=== PATIENT | male | born 1990 | race Two or more races ===

== ENCOUNTER 2017-07-25 14:18 | Emergency (ER) | payer MEDICAID ==
[~2017-07-25] VITALS: Ht 172.7 cm; Wt 95.8 kg
[2017-07-25] MEDS ORDERED: IBUPROFEN 800 MG TABLET PO SCH (15:30)
[2017-07-25] MEDS ORDERED: LIDOCAINE-MPF 1%, 5ML INFIL ONE (15:30)
[2017-07-25] MEDS ORDERED: IBUPROFEN 800 MG TABLET PO ONE (15:30)
[2017-07-25 16:58] VITALS: BP 119/86
== END 2017-07-25 17:25 | disposition home or self-care (01) ==
LOC: ED 16:55
DX: S71.121A Laceration with foreign body, right thigh, initial encounter (principal); F33.9 Major depressive disorder, recurrent, unspecified; X78.8XXA Intentional self-harm by other sharp object, initial encounter; Y93.89 Activity, other specified; Y92.89 Other specified places as the place of occurrence of the external cause; Y99.8 Other external cause status
CPT/HCPCS: 12032; 99284

== ENCOUNTER 2017-10-17 23:00 | Emergency (ER) | payer MEDICAID ==
[~2017-10-17] VITALS: Ht 172.7 cm; Wt 100.3 kg
[2017-10-17] MEDS ORDERED: ZOLOFT (23:07)
[2017-10-17] MEDS ORDERED: SEROQUEL (23:07)
[2017-10-17] MEDS ORDERED: synthroid (23:07)
[2017-10-18] MEDS ORDERED: ONDANSETRON ODT 4 MG PO ONE (01:00)
[2017-10-18] MEDS ORDERED: IBUPROFEN 200 MG TABLET PO ONE (01:00)
[2017-10-18] MEDS ORDERED: LIDOCAINE-MPF 2% ,5ML SQ ONE (01:00)
[2017-10-18 01:11] VITALS: BP 109/60
[2017-10-18] MEDS ORDERED: LIDOCAINE-MPF 2% ,5ML ONE ×2 (01:18→01:46)
[2017-10-18] MEDS ORDERED: IBUPROFEN 200 MG TABLET ONE (01:18)
[2017-10-18] MEDS ORDERED: ONDANSETRON ODT 4 MG ONE (01:18)
== END 2017-10-18 02:48 | disposition home or self-care (01) ==
LOC: ED 23:59
DX: L02.416 Cutaneous abscess of left lower limb (principal); M79.671 Pain in right foot; E11.9 Type 2 diabetes mellitus without complications; E03.9 Hypothyroidism, unspecified; J45.909 Unspecified asthma, uncomplicated; F17.200 Nicotine dependence, unspecified, uncomplicated
CPT/HCPCS: 10060; 73630; 76882; 99284; Q0162

== ENCOUNTER 2017-11-19 15:02 | Inpatient (IN) | payer MEDICAID ==
[~2017-11-19] VITALS: Ht 172.7 cm; Wt 86.5 kg
[~2017-11-19 15:02] MED LIST: SEROQUEL; ZOLOFT; synthroid
[2017-11-19] MEDS ORDERED: KETOROLAC 30 MG/1 ML IM ONE (15:30)
[2017-11-19 15:34] LABS: BASOPHILS # (AUTO) 0.02 x10^3/uL (0-0.1); BASOPHILS % (AUTO) 0 % (0-1); EOSINOPHILS % (AUTO) 1 % (1-7); LYMPHOCYTES # (AUTO) 2.15 x10^3/uL (1-3.4); LYMPHOCYTES % (AUTO) 26 % (22-44); MD NO; MEAN CORPUSCULAR HEMOGLOBIN 24.4 pg (27.5-34.5); MEAN CORPUSCULAR HGB CONC 32.7 g/dL (33.2-36.2); MEAN CORPUSCULAR VOLUME 74.7 fL (81-97); MEAN PLATELET VOLUME 8.8 fL (7.4-10.4); MONOCYTES # (AUTO) 0.58 x10^3/uL (0.2-0.8); MONOCYTES % (AUTO) 7 % (2-9); NEUTROPHILS % (AUTO) 66 % (42-75); PLATELET COUNT 275 x10^3/uL (130-400); RED BLOOD COUNT 5.71 x10^6/uL (4.38-5.82); RED CELL DISTRIBUTION WIDTH 16.3 % (9.4-14.8)
[2017-11-19] MEDS ORDERED: KETOROLAC 30 MG/1 ML ONE (15:36)
[2017-11-19 15:42] LABS: ALANINE AMINOTRANSFERASE 25 U/L (12-78); ALBUMIN 4.4 g/dL (3.4-5.0); ANION GAP 9 mmol/L (5-15); CALCIUM 9.5 mg/dL (8.5-10.1); CHLORIDE 104 mmol/L (98-107); CREATININE 1.19 mg/dL (0.7-1.3)
[2017-11-19 15:44] LABS: ACETAMINOPHEN < 2 mcg/mL (10-30); ALKALINE PHOSPHATASE 91 U/L (45-117); BILIRUBIN,TOTAL 0.2 mg/dL (0.2-1.0); SALICYLATE LEVEL < 1.7 mg/dL (2.8-20.0); TOTAL PROTEIN 8.7 g/dL (6.4-8.2)
[2017-11-19 16:07] LABS: AMPHETAMINE SCREEN, URINE Negative (Negative); BARBITURATE SCREEN, URINE Negative (Negative); BENZODIAZEPINE SCREEN, URINE Positive (Negative); CANNABINOID SCREEN, URINE Negative (Negative); COCAINE SCREEN, URINE Negative (Negative); METHADONE SCREEN, URINE Negative (Negative); OPIATE SCREEN, URINE Negative (Negative)
[2017-11-19] MEDS ORDERED: THORAZINE PO (17:38)
[2017-11-19] MEDS ORDERED: PROP20TA PO (17:38)
[2017-11-19] MEDS ORDERED: LEVO75TA PO (17:38)
[2017-11-19] MEDS ORDERED: GABA300C10 PO (17:38)
[2017-11-19] MEDS ORDERED: ZIPR60CA2 PO (17:38)
[2017-11-19] MEDS ORDERED: BACL20TA PO (17:39)
[2017-11-19] MEDS ORDERED: ZIPRASIDONE 20 MG INJ IM PRN (19:00)
[2017-11-19 19:56] VITALS: BP 135/81
[2017-11-19] MEDS ORDERED: GABAPENTIN 300 MG CAPSULE PO SCH (21:00)
[2017-11-19] MEDS: PROPRANOLOL 20 MG TABLET PO SCH (22:31)
[2017-11-19] MEDS: DOXYCYCLINE 100MG TABLET PO SCH (22:31)
[2017-11-19] MEDS: BACLOFEN 10 MG TABLET PO SCH (22:31)
[2017-11-19] MEDS ORDERED: ZIPRASIDONE 20MG CAPSULE PO ONE (23:30)
[2017-11-19] MEDS ORDERED: GABAPENTIN 300 MG CAPSULE PO ONE (23:30)
[2017-11-19] MEDS: DIVALPROEX 500 MG TAB.ER.24H PO SCH (23:48)
[2017-11-20] MEDS: LEVOTHYROXINE 75 MCG TABLET PO SCH (07:28)
[2017-11-20 07:48] VITALS: BP 108/68
[2017-11-20] MEDS: DOXYCYCLINE 100MG TABLET PO SCH ×2 (09:07→20:21)
[2017-11-20] MEDS: ZIPRASIDONE 40MG CAPSULE PO SCH ×2 (09:07→20:21)
[2017-11-20] MEDS: GABAPENTIN 300 MG CAPSULE PO SCH ×3 (09:07→20:21)
[2017-11-20] MEDS: SERTRALINE 50MG TABLET PO SCH (09:08)
[2017-11-20] MEDS: BACLOFEN 10 MG TABLET PO SCH ×3 (09:08→20:21)
[2017-11-20] MEDS: PROPRANOLOL 20 MG TABLET PO SCH ×3 (09:09→20:22)
[2017-11-20] MEDS: ACETAMINOPHEN 325 MG TABLET PO PRN (12:36)
[2017-11-20] MEDS: HYDROXYZINE PAMOATE 25MG CAP PO PRN (12:36)
[2017-11-20 15:23] VITALS: BP 124/73
[2017-11-20 19:44] VITALS: BP 110/70
[2017-11-20] MEDS: DIVALPROEX 500 MG TAB.ER.24H PO SCH (20:21)
[2017-11-20] MEDS ORDERED: DIVALPROEX 500 MG TAB.ER.24H PO SCH (21:00)
[2017-11-21 07:51] VITALS: BP 110/65
[2017-11-21] MEDS: LEVOTHYROXINE 75 MCG TABLET PO SCH (08:08)
[2017-11-21] MEDS: PROPRANOLOL 20 MG TABLET PO SCH ×3 (08:52→20:28)
[2017-11-21] MEDS: ZIPRASIDONE 40MG CAPSULE PO SCH ×2 (08:52→20:28)
[2017-11-21] MEDS: DOXYCYCLINE 100MG TABLET PO SCH ×2 (08:53→20:28)
[2017-11-21] MEDS: GABAPENTIN 300 MG CAPSULE PO SCH ×3 (08:53→20:28)
[2017-11-21] MEDS: BACLOFEN 10 MG TABLET PO SCH ×3 (08:53→20:28)
[2017-11-21] MEDS: SERTRALINE 50MG TABLET PO SCH (09:02)
[2017-11-21] MEDS: ACETAMINOPHEN 325 MG TABLET PO PRN (09:14)
[2017-11-21] MEDS: HYDROXYZINE PAMOATE 25MG CAP PO PRN ×2 (09:14→15:53)
[2017-11-21 20:00] VITALS: BP 125/84
[2017-11-21] MEDS: DIVALPROEX 500 MG TAB.ER.24H PO SCH (20:29)
[2017-11-21 21:55] VITALS: BP 129/85
[2017-11-21] MEDS: AMOXICILLIN/CLAV 875-125MG TABLET PO SCH (23:52)
[2017-11-22] MEDS: LEVOTHYROXINE 75 MCG TABLET PO SCH ×2 (06:00→08:00)
[2017-11-22] MEDS: ZIPRASIDONE 40MG CAPSULE PO SCH ×2 (08:04→20:58)
[2017-11-22] MEDS: SERTRALINE 50MG TABLET PO SCH (08:04)
[2017-11-22] MEDS: GABAPENTIN 300 MG CAPSULE PO SCH ×3 (08:05→20:58)
[2017-11-22] MEDS: BACLOFEN 10 MG TABLET PO SCH ×3 (08:05→20:58)
[2017-11-22] MEDS: DOXYCYCLINE 100MG TABLET PO SCH (08:05)
[2017-11-22] MEDS: PROPRANOLOL 20 MG TABLET PO SCH ×3 (08:11→20:58)
[2017-11-22 08:57] VITALS: BP 112/76
[2017-11-22] MEDS ORDERED: MIDAZOLAM 1 MG/ML, 2ML ONE (09:29)
[2017-11-22] MEDS ORDERED: FENTANYL PF 100 MCG/2ML ONE (09:29)
[2017-11-22] MEDS ORDERED: PROPOFOL 50 ML ONE (09:30)
[2017-11-22] MEDS ORDERED: KETAMINE 50 MG/ML, 10ML ONE (10:35)
[2017-11-22] MEDS ORDERED: BUPIVACAINE/PF-EPI 0.5% 1:200K ONE (10:43)
[2017-11-22] MEDS ORDERED: BUPIVACAINE/PF-EPI 0.5% 1:200K IM ONE (10:47)
[2017-11-22] MEDS ORDERED: ACETAMINOPHEN 650 MG/20.3 ML UDC ONE (11:14)
[2017-11-22] MEDS ORDERED: OXYcodone 5 MG/5 ML ORAL.SOL UDC ONE (11:14)
[2017-11-22] MEDS ORDERED: ONDANSETRON ODT 8 MG PO PRN (11:30)
[2017-11-22] MEDS ORDERED: HYDROcodone/APAP 7.5-325MG/15ML UDC PO PRN (11:30)
[2017-11-22] MEDS ORDERED: OXYcodone 5 MG/5 ML ORAL.SOL UDC PO PRN ×2 (11:30)
[2017-11-22] MEDS ORDERED: ALBUTEROL SULFATE 2.5 MG/3 ML NPPB PRN (11:30)
[2017-11-22] MEDS ORDERED: ACETAMINOPHEN 325 MG TABLET PO PRN ×2 (11:30)
[2017-11-22] MEDS: AMOXICILLIN/CLAV 875-125MG TABLET PO SCH (11:30)
[2017-11-22 11:40] VITALS: BP 137/88
[2017-11-22 13:05] LABS: BASOPHILS # (AUTO) 0.03 x10^3/uL (0-0.1); BASOPHILS % (AUTO) 0 % (0-1); EOSINOPHILS # (AUTO) 0.11 x10^3/uL (0-0.4); EOSINOPHILS % (AUTO) 1 % (1-7); LYMPHOCYTES # (AUTO) 2.29 x10^3/uL (1-3.4); LYMPHOCYTES % (AUTO) 23 % (22-44); MD NO; MEAN CORPUSCULAR HEMOGLOBIN 24.3 pg (27.5-34.5); MEAN CORPUSCULAR HGB CONC 32.6 g/dL (33.2-36.2); MEAN CORPUSCULAR VOLUME 74.5 fL (81-97); MEAN PLATELET VOLUME 8.8 fL (7.4-10.4); MONOCYTES # (AUTO) 0.65 x10^3/uL (0.2-0.8); MONOCYTES % (AUTO) 6 % (2-9); NEUTROPHILS # (AUTO) 7.06 x10^3/uL (1.8-6.8); NEUTROPHILS % (AUTO) 70 % (42-75); PLATELET COUNT 261 x10^3/uL (130-400); RED BLOOD COUNT 5.89 x10^6/uL (4.38-5.82); RED CELL DISTRIBUTION WIDTH 16.8 % (9.4-14.8)
[2017-11-22 13:13] LABS: ALBUMIN 3.8 g/dL (3.4-5.0); ANION GAP 9 mmol/L (5-15); CHLORIDE 108 mmol/L (98-107); CREATININE 1.18 mg/dL (0.7-1.3)
[2017-11-22] MEDS: ONDANSETRON 2MG/ML, 2ML IVPush PRN (16:34)
[2017-11-22] MEDS: IBUPROFEN 200 MG TABLET PO PRN (16:34)
[2017-11-22] MEDS: AMPICILLIN/SULBACTAM 3 GM in SODIUM CHLORIDE 0.9% 100 ML IV SCH ×2 (17:40→23:58)
[2017-11-22 18:29] VITALS: BP 98/55
[2017-11-22] MEDS: DIVALPROEX 500 MG TAB.ER.24H PO SCH (20:57)
[2017-11-23 00:22] VITALS: BP 106/66
[2017-11-23] MEDS: IBUPROFEN 200 MG TABLET PO PRN (03:29)
[2017-11-23] MEDS: ONDANSETRON 2MG/ML, 2ML IVPush PRN ×3 (03:29→18:07)
[2017-11-23 04:53] LABS: BASOPHILS # (AUTO) 0.04 x10^3/uL (0-0.1); BASOPHILS % (AUTO) 1 % (0-1); EOSINOPHILS # (AUTO) 0.12 x10^3/uL (0-0.4); EOSINOPHILS % (AUTO) 2 % (1-7); LYMPHOCYTES # (AUTO) 2.79 x10^3/uL (1-3.4); LYMPHOCYTES % (AUTO) 36 % (22-44); MD NO; MEAN CORPUSCULAR HEMOGLOBIN 24.6 pg (27.5-34.5); MEAN CORPUSCULAR HGB CONC 32.3 g/dL (33.2-36.2); MEAN PLATELET VOLUME 8.8 fL (7.4-10.4); MONOCYTES % (AUTO) 10 % (2-9); NEUTROPHILS # (AUTO) 4.09 x10^3/uL (1.8-6.8); NEUTROPHILS % (AUTO) 52 % (42-75); PLATELET COUNT 240 x10^3/uL (130-400); RED BLOOD COUNT 5.59 x10^6/uL (4.38-5.82); RED CELL DISTRIBUTION WIDTH 16.8 % (9.4-14.8)
[2017-11-23] MEDS: AMPICILLIN/SULBACTAM 3 GM in SODIUM CHLORIDE 0.9% 100 ML IV SCH ×3 (05:40→18:08)
[2017-11-23 06:30] VITALS: BP 98/62
[2017-11-23] MEDS: BACLOFEN 10 MG TABLET PO SCH ×3 (07:36→20:45)
[2017-11-23] MEDS: GABAPENTIN 300 MG CAPSULE PO SCH ×3 (07:36→20:45)
[2017-11-23] MEDS: ZIPRASIDONE 40MG CAPSULE PO SCH ×2 (07:36→20:45)
[2017-11-23] MEDS: PROPRANOLOL 20 MG TABLET PO SCH ×3 (07:37→20:44)
[2017-11-23] MEDS: SERTRALINE 50MG TABLET PO SCH (07:37)
[2017-11-23] MEDS: KETOROLAC 30 MG/1 ML IVPush PRN ×2 (11:22→17:20)
[2017-11-23 12:03] VITALS: BP 95/57
[2017-11-23] MEDS ORDERED: IBUPROFEN 200 MG TABLET PO PRN (14:30)
[2017-11-23 16:10] VITALS: BP 123/77
[2017-11-23 19:05] VITALS: BP 106/66
[2017-11-23] MEDS: DIVALPROEX 500 MG TAB.ER.24H PO SCH (20:45)
[2017-11-24] MEDS: ONDANSETRON 2MG/ML, 2ML IVPush PRN ×4 (00:04→18:10)
[2017-11-24] MEDS: AMPICILLIN/SULBACTAM 3 GM in SODIUM CHLORIDE 0.9% 100 ML IV SCH ×4 (00:05→18:00)
[2017-11-24 01:28] VITALS: BP 99/65
[2017-11-24] MEDS: KETOROLAC 30 MG/1 ML IVPush PRN ×3 (06:10→18:09)
[2017-11-24] MEDS: LEVOTHYROXINE 75 MCG TABLET PO SCH (06:11)
[2017-11-24 08:10] VITALS: BP 94/59
[2017-11-24 08:22] LABS: ALANINE AMINOTRANSFERASE 24 U/L (12-78); ALBUMIN 3.7 g/dL (3.4-5.0); ANION GAP 6 mmol/L (5-15); CALCIUM 9.1 mg/dL (8.5-10.1); CHLORIDE 107 mmol/L (98-107); CREATININE 1.28 mg/dL (0.7-1.3)
[2017-11-24] MEDS: PROPRANOLOL 20 MG TABLET PO SCH ×3 (08:23→20:45)
[2017-11-24 08:24] LABS: ALKALINE PHOSPHATASE 88 U/L (45-117); BILIRUBIN,TOTAL 0.3 mg/dL (0.2-1.0); TOTAL PROTEIN 7.8 g/dL (6.4-8.2)
[2017-11-24] MEDS: SERTRALINE 50MG TABLET PO SCH (08:24)
[2017-11-24] MEDS: ZIPRASIDONE 40MG CAPSULE PO SCH ×2 (08:24→20:44)
[2017-11-24] MEDS: BACLOFEN 10 MG TABLET PO SCH ×3 (08:24→20:44)
[2017-11-24] MEDS: GABAPENTIN 300 MG CAPSULE PO SCH ×3 (08:24→20:45)
[2017-11-24 12:14] VITALS: BP 107/66
[2017-11-24 18:35] VITALS: BP 136/85
[2017-11-24] MEDS: DIVALPROEX 500 MG TAB.ER.24H PO SCH (20:44)
[2017-11-25] MEDS: AMPICILLIN/SULBACTAM 3 GM in SODIUM CHLORIDE 0.9% 100 ML IV SCH ×2 (00:01→05:47)
[2017-11-25 03:20] VITALS: BP 103/61
[2017-11-25] MEDS: ONDANSETRON 2MG/ML, 2ML IVPush PRN ×3 (05:46→16:39)
[2017-11-25] MEDS: LEVOTHYROXINE 75 MCG TABLET PO SCH (05:46)
[2017-11-25] MEDS: KETOROLAC 30 MG/1 ML IVPush PRN ×2 (05:46→16:40)
[2017-11-25 08:17] VITALS: BP 112/76
[2017-11-25] MEDS: GABAPENTIN 300 MG CAPSULE PO SCH ×3 (09:03→21:24)
[2017-11-25] MEDS: BACLOFEN 10 MG TABLET PO SCH ×3 (09:04→21:20)
[2017-11-25] MEDS: SERTRALINE 50MG TABLET PO SCH (09:04)
[2017-11-25] MEDS: PROPRANOLOL 20 MG TABLET PO SCH ×3 (09:04→21:19)
[2017-11-25] MEDS: ZIPRASIDONE 40MG CAPSULE PO SCH (09:04)
[2017-11-25] MEDS: DIVALPROEX 500 MG TAB.ER.24H PO SCH ×2 (09:04→21:20)
[2017-11-25] MEDS: CALCIUM CARBONATE 500 MG TAB.CHEW PO SCH ×2 (09:30→21:19)
[2017-11-25 10:08] LABS: ANION GAP 9 mmol/L (5-15); CALCIUM 9.5 mg/dL (8.5-10.1); CHLORIDE 107 mmol/L (98-107); CREATININE 1.36 mg/dL (0.7-1.3)
[2017-11-25 10:13] LABS: BASOPHILS # (AUTO) 0.08 x10^3/uL (0-0.1); BASOPHILS % (AUTO) 1 % (0-1); EOSINOPHILS % (AUTO) 1 % (1-7); LYMPHOCYTES % (AUTO) 29 % (22-44); MD NO; MEAN CORPUSCULAR HEMOGLOBIN 24.8 pg (27.5-34.5); MEAN CORPUSCULAR HGB CONC 32.9 g/dL (33.2-36.2); MEAN CORPUSCULAR VOLUME 75.5 fL (81-97); MEAN PLATELET VOLUME 8.8 fL (7.4-10.4); MONOCYTES # (AUTO) 0.59 x10^3/uL (0.2-0.8); MONOCYTES % (AUTO) 8 % (2-9); NEUTROPHILS # (AUTO) 4.78 x10^3/uL (1.8-6.8); NEUTROPHILS % (AUTO) 61 % (42-75); PLATELET COUNT 290 x10^3/uL (130-400); RED BLOOD COUNT 5.66 x10^6/uL (4.38-5.82); RED CELL DISTRIBUTION WIDTH 16.9 % (9.4-14.8)
[2017-11-25 14:09] VITALS: BP 126/80
[2017-11-25] MEDS ORDERED: QUETIAPINE 100MG TABLET PO SCH (21:00)
[2017-11-25 21:22] VITALS: BP 117/80
[2017-11-25] MEDS ORDERED: GABAPENTIN 400 MG CAPSULE ONE (21:22)
[2017-11-26] MEDS: QUETIAPINE 25MG TABLET PO PRN ×3 (01:54→14:28)
[2017-11-26 03:35] VITALS: BP 103/64
[2017-11-26] MEDS: LEVOTHYROXINE 75 MCG TABLET PO SCH (06:00)
[2017-11-26 07:42] VITALS: BP 104/67
[2017-11-26] MEDS: GABAPENTIN 300 MG CAPSULE PO SCH (09:00)
[2017-11-26] MEDS: SERTRALINE 50MG TABLET PO SCH (10:36)
[2017-11-26] MEDS: CALCIUM CARBONATE 500 MG TAB.CHEW PO SCH (10:36)
[2017-11-26] MEDS: DIVALPROEX 500 MG TAB.ER.24H PO SCH (10:36)
[2017-11-26] MEDS: PROPRANOLOL 20 MG TABLET PO SCH (10:38)
[2017-11-26] MEDS: KETOROLAC 30 MG/1 ML IVPush PRN (10:45)
[2017-11-26] MEDS: BACLOFEN 10 MG TABLET PO SCH (10:45)
[2017-11-26] MEDS: ONDANSETRON 2MG/ML, 2ML IVPush PRN (10:46)
[2017-11-26 14:10] VITALS: BP 117/76
[2017-11-26] MEDS: ACETAMINOPHEN 325 MG TABLET PO PRN (14:27)
[2017-11-26] MEDS ORDERED: DIVA500T4 PO (16:20)
[2017-11-26] MEDS ORDERED: SERT50TA5 PO (16:20)
[2017-11-26] MEDS ORDERED: QUET100T PO (16:20)
== END 2017-11-26 17:33 | disposition home or self-care (01) | DRG 605 ==
LOC: ED 15:32 → EDIP 17:15 → OBSVTOIN 17:15 → 2N 19:49 → 3NE 11-22 13:45
PROVIDERS: ADMIT Hospitalist; ATTEND Hospitalist
PROC: 0HCJXZZ Extirpation of Matter from Left Upper Leg Skin, External Approach (ICD-10-PCS; principal; 2017-11-22 09:30)
DX: S70.352A Superficial foreign body, left thigh, initial encounter (principal); R45.851 Suicidal ideations; F32.9 Major depressive disorder, single episode, unspecified; F43.10 Post-traumatic stress disorder, unspecified; G40.909 Epilepsy, unspecified, not intractable, without status epilepticus; G62.9 Polyneuropathy, unspecified; J45.909 Unspecified asthma, uncomplicated; E03.9 Hypothyroidism, unspecified; F60.3 Borderline personality disorder; D72.829 Elevated white blood cell count, unspecified; R33.9 Retention of urine, unspecified; F12.20 Cannabis dependence, uncomplicated; K21.9 Gastro-esophageal reflux disease without esophagitis; Z79.899 Other long term (current) drug therapy; Z91.030 Bee allergy status; Z91.040 Latex allergy status; Z88.5 Allergy status to narcotic agent; Z91.013 Allergy to seafood; Z87.891 Personal history of nicotine dependence; X83.8XXA Intentional self-harm by other specified means, initial encounter; Y93.89 Activity, other specified; Y92.89 Other specified places as the place of occurrence of the external cause; Y99.8 Other external cause status
CPT/HCPCS: 36415; 80048; 80053; 80307; 80329; 82040; 83735; 84100; 84443; 85025; 88300; 93005; J0295; J1885; J2250; J2405; J2704; J3010; J3486; G0378; G0480

== ENCOUNTER 2018-02-23 23:52 | Observation (INO) | payer MEDICAID ==
[~2018-02-23] VITALS: Ht 172.7 cm; Wt 127.0 kg
[~2018-02-23 23:52] MED LIST changes: +BACL20TA PO; +DIVA500T4 PO; +GABA300C10 PO; +LEVO75TA PO; +PROP20TA PO; +QUET100T PO; +SERT50TA5 PO; +THORAZINE PO; +ZIPR60CA2 PO
[2018-02-24 00:53] LABS: BASOPHILS # (AUTO) 0.03 x10^3/uL (0-0.1); BASOPHILS % (AUTO) 0 % (0-1); EOSINOPHILS % (AUTO) 2 % (1-7); LYMPHOCYTES # (AUTO) 2.97 x10^3/uL (1-3.4); LYMPHOCYTES % (AUTO) 36 % (22-44); MD NO; MEAN CORPUSCULAR HEMOGLOBIN 25.7 pg (27.5-34.5); MEAN CORPUSCULAR HGB CONC 33.4 g/dL (33.2-36.2); MEAN PLATELET VOLUME 8.9 fL (7.4-10.4); MONOCYTES # (AUTO) 0.68 x10^3/uL (0.2-0.8); MONOCYTES % (AUTO) 8 % (2-9); NEUTROPHILS # (AUTO) 4.43 x10^3/uL (1.8-6.8); NEUTROPHILS % (AUTO) 53 % (42-75); PLATELET COUNT 249 x10^3/uL (130-400); RED BLOOD COUNT 5.63 x10^6/uL (4.38-5.82); RED CELL DISTRIBUTION WIDTH 17.5 % (9.4-14.8)
[2018-02-24 01:02] LABS: ALBUMIN 3.8 g/dL (3.4-5.0); ANION GAP 9 mmol/L (5-15); CALCIUM 8.6 mg/dL (8.5-10.1); CHLORIDE 107 mmol/L (98-107); CREATININE 1.21 mg/dL (0.7-1.3); SALICYLATE LEVEL 2.7 mg/dL (2.8-20.0)
[2018-02-24 01:04] LABS: ACETAMINOPHEN < 2 mcg/mL (10-30)
[2018-02-24 01:11] LABS: AMPHETAMINE SCREEN, URINE Positive (Negative); BARBITURATE SCREEN, URINE Negative (Negative); BENZODIAZEPINE SCREEN, URINE Negative (Negative); CANNABINOID SCREEN, URINE Positive (Negative); COCAINE SCREEN, URINE Negative (Negative); METHADONE SCREEN, URINE Negative (Negative); OPIATE SCREEN, URINE Negative (Negative)
[2018-02-24] MEDS ORDERED: LIDOCAINE-MPF 1%, 5ML INFIL ONE ×2 (02:00→05:30)
[2018-02-24] MEDS ORDERED: LIDOCAINE-MPF 1%, 5ML ONE ×2 (02:00→02:11)
[2018-02-24] MEDS ORDERED: LIDOCAINE-MPF 1%, 2ML ONE ×3 (04:01→05:21)
[2018-02-24] MEDS ORDERED: PANT40TA3 PO (04:47)
[2018-02-24] MEDS ORDERED: QUET100T4 PO (04:47)
[2018-02-24] MEDS ORDERED: ZIPR80CA2 PO (04:47)
[2018-02-24] MEDS ORDERED: QUET400T4 PO (04:47)
[2018-02-24] MEDS ORDERED: LORA-446 PO (04:47)
[2018-02-24] MEDS ORDERED: SULFAMETH./TRIMETHOPRIM DS 800MG/160MG TABLET PO ONE (05:00)
[2018-02-24] MEDS ORDERED: SULFAMETH./TRIMETHOPRIM DS 800MG/160MG TABLET ONE ×2 (05:12→05:16)
[2018-02-24] MEDS ORDERED: LORazepam 1MG TABLET PO PRN (07:30)
[2018-02-24] MEDS ORDERED: ONDANSETRON ODT 4 MG PO PRN (07:30)
[2018-02-24] MEDS ORDERED: POLYETHYLENE GLYCOL 17 GM PACKET PO PRN (07:30)
[2018-02-24] MEDS ORDERED: ZIPRASIDONE 20MG CAPSULE ONE (08:09)
[2018-02-24] MEDS ORDERED: SENNA/DOCUSATE TABLET ONE (08:09)
[2018-02-24 08:10] LABS: FREE T4 (FREE THYROXINE) 0.85 ng/dL (0.76-1.46); THYROID STIMULATING HORMONE 3.42 mIU/L (0.358-3.740)
[2018-02-24] MEDS ORDERED: GABAPENTIN 400 MG CAPSULE ONE ×2 (08:10→16:16)
[2018-02-24] MEDS ORDERED: PROPRANOLOL 10 MG TABLET ONE ×2 (08:10→16:16)
[2018-02-24] MEDS: PROPRANOLOL HCL 20 MG PO SCH ×2 (08:12→16:41)
[2018-02-24] MEDS: LEVOTHYROXINE 75 MCG TABLET PO SCH (08:12)
[2018-02-24] MEDS: GABAPENTIN 400 MG CAPSULE PO SCH ×3 (08:13→20:02)
[2018-02-24] MEDS: SENNA/DOCUSATE TABLET PO SCH (08:31)
[2018-02-24] MEDS ORDERED: QUETIAPINE 100MG TABLET ONE ×2 (08:42→16:15)
[2018-02-24] MEDS: DIVALPROEX 500 MG TAB.ER.24H PO SCH ×2 (08:55→20:02)
[2018-02-24] MEDS ORDERED: QUETIAPINE 100MG TABLET PO SCH (09:00)
[2018-02-24] MEDS ORDERED: ZIPRASIDONE HCL 40 MG PO SCH (09:00)
[2018-02-24] MEDS: QUETIAPINE 100MG TABLET PO SCH ×2 (16:41→20:03)
[2018-02-24 17:49] VITALS: BP 122/77
[2018-02-24] MEDS ORDERED: ZIPRASIDONE 40MG CAPSULE PO SCH ×2 (17:50→21:30)
[2018-02-24 19:20] VITALS: BP 109/71
[2018-02-24] MEDS: PANTOPROZOLE 40MG TABLET PO SCH (20:01)
[2018-02-24] MEDS: PROPRANOLOL 20 MG TABLET PO SCH (20:02)
[2018-02-24] MEDS ORDERED: ZIPRASIDONE 40MG CAPSULE PO ONE (21:30)
[2018-02-25] MEDS: LEVOTHYROXINE 75 MCG TABLET PO SCH ×2 (06:00→06:02)
[2018-02-25 10:56] VITALS: BP 118/77
[2018-02-25] MEDS: PROPRANOLOL 20 MG TABLET PO SCH ×3 (10:59→21:22)
[2018-02-25] MEDS: GABAPENTIN 400 MG CAPSULE PO SCH ×3 (10:59→21:22)
[2018-02-25] MEDS: DIVALPROEX 500 MG TAB.ER.24H PO SCH ×2 (11:00→21:21)
[2018-02-25] MEDS: ZIPRASIDONE 40MG CAPSULE PO SCH ×2 (11:00→21:22)
[2018-02-25] MEDS: SENNA/DOCUSATE TABLET PO SCH (11:00)
[2018-02-25] MEDS: QUETIAPINE 100MG TABLET PO SCH ×6 (11:01→21:21)
[2018-02-25 19:37] VITALS: BP 95/65
[2018-02-25 20:57] VITALS: BP 104/71
[2018-02-25] MEDS: PANTOPROZOLE 40MG TABLET PO SCH (21:25)
[2018-02-26 07:45] VITALS: BP 101/69
[2018-02-26] MEDS ORDERED: QUETIAPINE 100MG TABLET PO SCH (09:00)
[2018-02-26] MEDS: SENNA/DOCUSATE TABLET PO SCH (09:00)
[2018-02-26] MEDS: PROPRANOLOL 20 MG TABLET PO SCH ×3 (10:26→20:24)
[2018-02-26] MEDS: DIVALPROEX 500 MG TAB.ER.24H PO SCH ×2 (10:27→20:25)
[2018-02-26] MEDS: GABAPENTIN 400 MG CAPSULE PO SCH ×3 (10:27→20:25)
[2018-02-26] MEDS: QUETIAPINE 100MG TABLET PO SCH ×3 (10:27→20:25)
[2018-02-26] MEDS: LEVOTHYROXINE 75 MCG TABLET PO SCH (10:27)
[2018-02-26] MEDS: ZIPRASIDONE 40MG CAPSULE PO SCH ×2 (10:28→20:25)
[2018-02-26 19:40] VITALS: BP 105/71
[2018-02-26] MEDS: PANTOPROZOLE 40MG TABLET PO SCH (20:25)
[2018-02-27] MEDS: LEVOTHYROXINE 75 MCG TABLET PO SCH (08:19)
[2018-02-27] MEDS: QUETIAPINE 100MG TABLET PO SCH ×3 (08:19→20:18)
[2018-02-27] MEDS: DIVALPROEX 500 MG TAB.ER.24H PO SCH ×2 (08:19→20:18)
[2018-02-27] MEDS: PROPRANOLOL 20 MG TABLET PO SCH ×3 (08:19→20:17)
[2018-02-27] MEDS: GABAPENTIN 400 MG CAPSULE PO SCH ×3 (08:20→20:18)
[2018-02-27] MEDS: ZIPRASIDONE 40MG CAPSULE PO SCH ×2 (08:20→20:18)
[2018-02-27] MEDS: SENNA/DOCUSATE TABLET PO SCH (08:20)
[2018-02-27 08:29] VITALS: BP 114/78
[2018-02-27 19:50] VITALS: BP 114/80
[2018-02-27] MEDS: PANTOPROZOLE 40MG TABLET PO SCH (20:18)
[2018-02-28] MEDS: LEVOTHYROXINE 75 MCG TABLET PO SCH (05:53)
[2018-02-28] MEDS: PROPRANOLOL 20 MG TABLET PO SCH ×3 (08:35→20:01)
[2018-02-28] MEDS: ZIPRASIDONE 40MG CAPSULE PO SCH ×2 (08:35→20:01)
[2018-02-28] MEDS: GABAPENTIN 400 MG CAPSULE PO SCH ×3 (08:36→20:01)
[2018-02-28] MEDS: SENNA/DOCUSATE TABLET PO SCH (08:36)
[2018-02-28] MEDS: DIVALPROEX 500 MG TAB.ER.24H PO SCH ×2 (08:36→21:00)
[2018-02-28] MEDS: QUETIAPINE 100MG TABLET PO SCH ×3 (08:36→20:02)
[2018-02-28 08:44] VITALS: BP 104/69
[2018-02-28 16:26] VITALS: BP 110/74
[2018-02-28] MEDS ORDERED: IBUPROFEN 200 MG TABLET PO PRN (17:00)
[2018-02-28 20:00] VITALS: BP 110/79
[2018-02-28] MEDS: PANTOPROZOLE 40MG TABLET PO SCH (20:00)
[2018-03-01] MEDS: LEVOTHYROXINE 75 MCG TABLET PO SCH (05:18)
[2018-03-01] MEDS: QUETIAPINE 100MG TABLET PO SCH (08:10)
[2018-03-01] MEDS: DIVALPROEX 500 MG TAB.ER.24H PO SCH (08:10)
[2018-03-01] MEDS: ZIPRASIDONE 40MG CAPSULE PO SCH (08:10)
[2018-03-01] MEDS: PROPRANOLOL 20 MG TABLET PO SCH (08:10)
[2018-03-01] MEDS: SENNA/DOCUSATE TABLET PO SCH (08:15)
[2018-03-01] MEDS: GABAPENTIN 400 MG CAPSULE PO SCH (08:19)
[2018-03-01 08:38] VITALS: BP 107/73
== END 2018-03-01 12:35 ==
LOC: ED 23:59 → UNDOADMOB 02-24 06:37 → EDIP 02-24 06:37 → 2N 02-24 17:40 → EDIP 02-24 17:40
PROVIDERS: ADMIT Hospitalist; ATTEND Hospitalist
DX: R45.851 Suicidal ideations (principal); E03.9 Hypothyroidism, unspecified; F12.10 Cannabis abuse, uncomplicated; F32.9 Major depressive disorder, single episode, unspecified; G40.909 Epilepsy, unspecified, not intractable, without status epilepticus; G62.9 Polyneuropathy, unspecified; J45.909 Unspecified asthma, uncomplicated; K21.9 Gastro-esophageal reflux disease without esophagitis; F43.10 Post-traumatic stress disorder, unspecified; M79.5 Residual foreign body in soft tissue; Z87.891 Personal history of nicotine dependence; Z91.5 Personal history of self-harm
CPT/HCPCS: 36415; 73090; 80048; 80307; 80329; 82040; 82728; 83540; 83550; 84439; 84443; 85025; 99285; G0378; G0480

== ENCOUNTER 2018-05-28 12:09 | Emergency (ER) | payer MEDICAID ==
[~2018-05-28] VITALS: Ht 172.7 cm; Wt 109.3 kg
[~2018-05-28 12:09] MED LIST changes: +LORA-446 PO; +PANT40TA3 PO; +QUET100T4 PO; +QUET400T4 PO; +SERT50TA28 PO; -SERT50TA5 PO; +ZIPR80CA2 PO
[2018-05-28 12:13] VITALS: BP 125/87
== END 2018-05-28 13:24 | disposition home or self-care (01) ==
LOC: ED 12:35
DX: S60.221A Contusion of right hand, initial encounter (principal); E11.9 Type 2 diabetes mellitus without complications; J45.909 Unspecified asthma, uncomplicated; F12.10 Cannabis abuse, uncomplicated; E03.9 Hypothyroidism, unspecified; F32.9 Major depressive disorder, single episode, unspecified; Z72.9 Problem related to lifestyle, unspecified; X58.XXXA Exposure to other specified factors, initial encounter; Y93.89 Activity, other specified; Y92.098 Other place in other non-institutional residence as the place of occurrence of the external cause; Y99.8 Other external cause status
CPT/HCPCS: 99283

== ENCOUNTER 2018-07-04 17:42 | Observation (INO) | payer MEDICAID ==
[~2018-07-04] VITALS: Ht 172.7 cm; Wt 105.0 kg
--- NOTE | 2018-07-04 18:20 | NUR ---
PT BIB [facility] FOR [facility]. PT HAS BEEN HAVING THOUGHTS SINCE THE PASSING OF A COUSIN ON THE Jun. PT HAS PLAN OF OD ON PRESCRIBED GEODONE. PREVIOUS ATTEMPTS WITH OD AND CUTTING. PT HAS MULTIPLE SCARS ON LEGS, ARMS AND NECK.
[2018-07-04 18:25] LABS: BASOPHILS # (AUTO) 0.03 x10^3/uL (0-0.1); BASOPHILS % (AUTO) 0 % (0-1); EOSINOPHILS # (AUTO) 0.08 x10^3/uL (0-0.4); EOSINOPHILS % (AUTO) 1 % (1-7); LYMPHOCYTES # (AUTO) 1.82 x10^3/uL (1-3.4); LYMPHOCYTES % (AUTO) 24 % (22-44); MD NO; MEAN CORPUSCULAR HEMOGLOBIN 26.2 pg (27.5-34.5); MEAN CORPUSCULAR HGB CONC 33.2 g/dL (33.2-36.2); MEAN CORPUSCULAR VOLUME 78.8 fL (81-97); MEAN PLATELET VOLUME 8.9 fL (7.4-10.4); MONOCYTES # (AUTO) 0.58 x10^3/uL (0.2-0.8); MONOCYTES % (AUTO) 8 % (2-9); NEUTROPHILS # (AUTO) 5.18 x10^3/uL (1.8-6.8); NEUTROPHILS % (AUTO) 67 % (42-75); PLATELET COUNT 223 x10^3/uL (130-400); RED BLOOD COUNT 5.81 x10^6/uL (4.38-5.82); RED CELL DISTRIBUTION WIDTH 16.4 % (9.4-14.8)
[2018-07-04 18:28] LABS: AMPHETAMINE SCREEN, URINE Positive (Negative); BARBITURATE SCREEN, URINE Negative (Negative); BENZODIAZEPINE SCREEN, URINE Negative (Negative); CANNABINOID SCREEN, URINE Positive (Negative); COCAINE SCREEN, URINE Negative (Negative); METHADONE SCREEN, URINE Negative (Negative); OPIATE SCREEN, URINE Negative (Negative)
[2018-07-04 18:35] LABS: ALANINE AMINOTRANSFERASE 23 U/L (12-78); ALBUMIN 3.7 g/dL (3.4-5.0); ANION GAP 6 mmol/L (5-15); CALCIUM 8.7 mg/dL (8.5-10.1); CHLORIDE 111 mmol/L (98-107); CREATININE 1.21 mg/dL (0.7-1.3)
[2018-07-04 18:36] LABS: SALICYLATE LEVEL < 1.7 mg/dL (2.8-20.0)
--- NOTE | 2018-07-04 18:36 | NUR ---
4 BAGS PLACED IN LOCKER ON LOWER LEFT SHELF. UA SENT. MEAL TRAY ORDERED. PT IN ROOM. SITTER AT BEDSIDE AND ROOM IS SECURE.
[2018-07-04 18:45] LABS: ALKALINE PHOSPHATASE 93 U/L (45-117); BILIRUBIN,TOTAL 0.4 mg/dL (0.2-1.0); TOTAL PROTEIN 8.1 g/dL (6.4-8.2)
--- NOTE | 2018-07-04 18:45 | NUR ---
REPORT TO CAROLINE VIDAL
[2018-07-04 18:46] LABS: ACETAMINOPHEN < 2 mcg/mL (10-30)
--- NOTE | 2018-07-04 18:55 | NUR ---
TELEPSYCH CONSULT INITIATED
[2018-07-04] MEDS ORDERED: FLUO20CA19 PO (19:43)
--- NOTE | 2018-07-04 20:10 | NUR ---
REPORT GIVEN TO TELEPSYCH DOCTOR. CAMERA IN ROOM
--- NOTE | 2018-07-04 21:26 | NUR ---
PT GIVEN SANDWICH AND SODA PER REQUEST. POC DISCUSSED. PT AGREEABLE TO ADMISSION. PT AWARE HE IS A LEGAL HOLD. PT DENIES FURTHER NEEDS AT THIS TIME. SITTER REMAINS IN PLACE.
--- NOTE | 2018-07-04 23:09 | NUR ---
PT SLEEPING AT THIS TIME. RR 14 AND UNLABORED. NAD. SITTER REMAINS IN PLACE. AWAITING HOSPITALIST ORDERS FOR ADMIT.
[2018-07-04] MEDS ORDERED: DOCUSATE 100 MG CAPSULE PO PRN (23:30)
[2018-07-05 00:18] VITALS: BP 105/73
[2018-07-05 00:31] VITALS: BP 105/73
[2018-07-05] MEDS: DIVALPROEX 500 MG TAB.ER.24H PO SCH ×3 (00:46→20:19)
[2018-07-05] MEDS: GABAPENTIN 400 MG CAPSULE PO SCH ×4 (00:49→20:17)
[2018-07-05] MEDS: ZIPRASIDONE 40MG CAPSULE PO SCH ×3 (00:50→20:18)
[2018-07-05] MEDS: PROPRANOLOL 20 MG TABLET PO SCH ×4 (00:51→20:19)
[2018-07-05] MEDS: LORazepam 1MG TABLET PO PRN ×2 (00:51→20:18)
[2018-07-05] MEDS: QUETIAPINE 200 MG TABLET PO SCH ×2 (00:51→20:20)
[2018-07-05] MEDS: LEVOTHYROXINE 75 MCG TABLET PO SCH (07:55)
[2018-07-05] MEDS: SERTRALINE 100MG TABLET PO SCH (07:55)
[2018-07-05] MEDS: QUETIAPINE 100MG TABLET PO SCH ×2 (07:56→11:50)
[2018-07-05 08:00] VITALS: BP_SYST 104; BP_SYST 109; BP_DIAS 70; BP_DIAS 72
[2018-07-05 19:04] VITALS: BP 101/59
[2018-07-06] MEDS: LEVOTHYROXINE 75 MCG TABLET PO SCH (07:43)
[2018-07-06 08:30] VITALS: BP 96/57
[2018-07-06] MEDS: ZIPRASIDONE 40MG CAPSULE PO SCH ×2 (08:52→20:11)
[2018-07-06] MEDS: PROPRANOLOL 20 MG TABLET PO SCH ×3 (08:52→20:09)
[2018-07-06] MEDS: SERTRALINE 100MG TABLET PO SCH (08:53)
[2018-07-06] MEDS: GABAPENTIN 400 MG CAPSULE PO SCH ×3 (08:53→20:09)
[2018-07-06] MEDS: QUETIAPINE 100MG TABLET PO SCH ×2 (08:54→12:34)
[2018-07-06] MEDS: DIVALPROEX 500 MG TAB.ER.24H PO SCH ×2 (08:58→20:12)
[2018-07-06] MEDS: LORazepam 1MG TABLET PO PRN ×2 (12:57→20:11)
[2018-07-06 16:44] VITALS: BP 117/77
[2018-07-06 19:45] VITALS: BP 117/77
[2018-07-06] MEDS: QUETIAPINE 200 MG TABLET PO SCH (20:10)
[2018-07-07 07:55] VITALS: BP 96/66
[2018-07-07] MEDS: SERTRALINE 100MG TABLET PO SCH (08:07)
[2018-07-07] MEDS: ZIPRASIDONE 40MG CAPSULE PO SCH ×2 (08:07→20:17)
[2018-07-07] MEDS: QUETIAPINE 100MG TABLET PO SCH ×2 (08:08→12:59)
[2018-07-07] MEDS: DIVALPROEX 500 MG TAB.ER.24H PO SCH ×2 (08:09→20:16)
[2018-07-07] MEDS: GABAPENTIN 400 MG CAPSULE PO SCH ×3 (08:10→20:17)
[2018-07-07] MEDS: PROPRANOLOL 20 MG TABLET PO SCH ×3 (08:17→20:18)
[2018-07-07] MEDS: LEVOTHYROXINE 75 MCG TABLET PO SCH ×2 (11:00→11:02)
[2018-07-07 16:00] VITALS: BP 128/73
[2018-07-07] MEDS: QUETIAPINE 200 MG TABLET PO SCH (20:17)
[2018-07-07] MEDS: LORazepam 1MG TABLET PO PRN (20:29)
[2018-07-07 20:33] VITALS: BP 116/77
[2018-07-08 07:57] VITALS: BP 94/58
[2018-07-08] MEDS: PROPRANOLOL 20 MG TABLET PO SCH ×3 (08:10→20:25)
[2018-07-08] MEDS: QUETIAPINE 100MG TABLET PO SCH ×2 (08:11→12:17)
[2018-07-08] MEDS: DIVALPROEX 500 MG TAB.ER.24H PO SCH ×2 (08:11→20:23)
[2018-07-08] MEDS: SERTRALINE 100MG TABLET PO SCH (08:11)
[2018-07-08] MEDS: GABAPENTIN 400 MG CAPSULE PO SCH ×3 (08:12→20:26)
[2018-07-08] MEDS: ZIPRASIDONE 40MG CAPSULE PO SCH ×2 (08:13→20:24)
[2018-07-08] MEDS: LEVOTHYROXINE 75 MCG TABLET PO SCH (08:13)
[2018-07-08 15:36] VITALS: BP 144/51
[2018-07-08 19:15] VITALS: BP 110/70
[2018-07-08] MEDS: QUETIAPINE 200 MG TABLET PO SCH (20:26)
[2018-07-09] MEDS: LEVOTHYROXINE 75 MCG TABLET PO SCH (06:38)
[2018-07-09] MEDS: GABAPENTIN 400 MG CAPSULE PO SCH ×3 (07:54→20:07)
[2018-07-09] MEDS: ZIPRASIDONE 40MG CAPSULE PO SCH ×2 (07:54→20:08)
[2018-07-09] MEDS: DIVALPROEX 500 MG TAB.ER.24H PO SCH ×2 (07:55→20:07)
[2018-07-09] MEDS: QUETIAPINE 100MG TABLET PO SCH ×2 (07:55→12:45)
[2018-07-09] MEDS: SERTRALINE 100MG TABLET PO SCH (07:55)
[2018-07-09] MEDS: PROPRANOLOL 20 MG TABLET PO SCH ×3 (07:56→20:06)
[2018-07-09 08:06] VITALS: BP 101/71
[2018-07-09 19:10] VITALS: BP 106/63
[2018-07-09] MEDS: QUETIAPINE 200 MG TABLET PO SCH (20:06)
[2018-07-09] MEDS: LORazepam 1MG TABLET PO PRN (20:08)
[2018-07-09] MEDS: PANTOPROZOLE 40MG TABLET PO SCH (20:08)
[2018-07-10] MEDS: LORazepam 1MG TABLET PO PRN ×2 (05:08→20:25)
[2018-07-10] MEDS: LEVOTHYROXINE 75 MCG TABLET PO SCH (06:39)
[2018-07-10 07:47] VITALS: BP 110/84
[2018-07-10] MEDS: ZIPRASIDONE 40MG CAPSULE PO SCH ×2 (08:00→20:27)
[2018-07-10] MEDS: GABAPENTIN 400 MG CAPSULE PO SCH ×3 (08:02→20:26)
[2018-07-10] MEDS: QUETIAPINE 100MG TABLET PO SCH ×2 (08:03→12:15)
[2018-07-10] MEDS: SERTRALINE 100MG TABLET PO SCH (08:04)
[2018-07-10] MEDS: DIVALPROEX 500 MG TAB.ER.24H PO SCH ×2 (08:12→20:25)
[2018-07-10] MEDS: PROPRANOLOL 20 MG TABLET PO SCH ×3 (08:13→20:26)
[2018-07-10 19:57] VITALS: BP 106/67
[2018-07-10] MEDS: PANTOPROZOLE 40MG TABLET PO SCH (20:25)
[2018-07-10] MEDS: QUETIAPINE 200 MG TABLET PO SCH (20:26)
[2018-07-11 08:00] VITALS: BP 98/63
[2018-07-11] MEDS: SERTRALINE 100MG TABLET PO SCH (08:32)
[2018-07-11] MEDS: ZIPRASIDONE 40MG CAPSULE PO SCH ×2 (08:32→20:23)
[2018-07-11] MEDS: GABAPENTIN 400 MG CAPSULE PO SCH ×3 (08:33→20:24)
[2018-07-11] MEDS: QUETIAPINE 100MG TABLET PO SCH ×2 (08:33→12:38)
[2018-07-11] MEDS: LEVOTHYROXINE 75 MCG TABLET PO SCH (08:33)
[2018-07-11] MEDS: DIVALPROEX 500 MG TAB.ER.24H PO SCH ×2 (08:34→20:25)
[2018-07-11] MEDS: PROPRANOLOL 20 MG TABLET PO SCH ×3 (08:34→20:25)
[2018-07-11] MEDS: LORazepam 1MG TABLET PO PRN ×2 (12:38→20:24)
[2018-07-11 19:51] VITALS: BP 104/63
[2018-07-11] MEDS: PANTOPROZOLE 40MG TABLET PO SCH (20:23)
[2018-07-11] MEDS: QUETIAPINE 200 MG TABLET PO SCH (20:24)
[2018-07-12 08:00] VITALS: BP 95/58
[2018-07-12] MEDS: SERTRALINE 100MG TABLET PO SCH (08:04)
[2018-07-12] MEDS: LEVOTHYROXINE 75 MCG TABLET PO SCH (08:05)
[2018-07-12] MEDS: QUETIAPINE 100MG TABLET PO SCH ×2 (08:05→11:45)
[2018-07-12] MEDS: ZIPRASIDONE 40MG CAPSULE PO SCH ×2 (08:06→20:10)
[2018-07-12] MEDS: PROPRANOLOL 20 MG TABLET PO SCH ×3 (08:06→20:10)
[2018-07-12] MEDS: GABAPENTIN 400 MG CAPSULE PO SCH ×3 (08:06→20:09)
[2018-07-12] MEDS: DIVALPROEX 500 MG TAB.ER.24H PO SCH ×2 (08:06→20:09)
[2018-07-12] MEDS: LORazepam 1MG TABLET PO PRN ×2 (14:15→20:18)
[2018-07-12 19:26] VITALS: BP 99/63
[2018-07-12] MEDS: PANTOPROZOLE 40MG TABLET PO SCH (20:08)
[2018-07-12] MEDS: QUETIAPINE 200 MG TABLET PO SCH (20:10)
[2018-07-13] MEDS: LEVOTHYROXINE 75 MCG TABLET PO SCH (07:41)
[2018-07-13 07:50] VITALS: BP 95/58
[2018-07-13] MEDS: ZIPRASIDONE 40MG CAPSULE PO SCH ×2 (09:26→20:13)
[2018-07-13] MEDS: QUETIAPINE 100MG TABLET PO SCH ×2 (09:27→12:32)
[2018-07-13] MEDS: SERTRALINE 100MG TABLET PO SCH (09:27)
[2018-07-13] MEDS: GABAPENTIN 400 MG CAPSULE PO SCH ×3 (09:27→20:12)
[2018-07-13] MEDS: DIVALPROEX 500 MG TAB.ER.24H PO SCH ×2 (09:39→20:14)
[2018-07-13] MEDS: PROPRANOLOL 20 MG TABLET PO SCH ×3 (09:39→20:14)
[2018-07-13 20:00] VITALS: BP 118/79
[2018-07-13] MEDS: QUETIAPINE 200 MG TABLET PO SCH (20:13)
[2018-07-13] MEDS: LORazepam 1MG TABLET PO PRN (20:14)
[2018-07-13] MEDS: PANTOPROZOLE 40MG TABLET PO SCH (20:14)
[2018-07-14 07:38] VITALS: BP 82/52
[2018-07-14 09:09] VITALS: BP 91/57
[2018-07-14] MEDS: LEVOTHYROXINE 75 MCG TABLET PO SCH (09:09)
[2018-07-14] MEDS: DIVALPROEX 500 MG TAB.ER.24H PO SCH ×2 (09:09→20:04)
[2018-07-14] MEDS: PROPRANOLOL 20 MG TABLET PO SCH ×3 (09:10→20:05)
[2018-07-14] MEDS: ZIPRASIDONE 40MG CAPSULE PO SCH ×2 (09:10→20:04)
[2018-07-14] MEDS: GABAPENTIN 400 MG CAPSULE PO SCH ×3 (09:11→20:05)
[2018-07-14] MEDS: SERTRALINE 100MG TABLET PO SCH (09:12)
[2018-07-14] MEDS: QUETIAPINE 100MG TABLET PO SCH ×2 (09:12→12:31)
[2018-07-14 20:00] VITALS: BP 116/77
[2018-07-14] MEDS: LORazepam 1MG TABLET PO PRN (20:04)
[2018-07-14] MEDS: PANTOPROZOLE 40MG TABLET PO SCH (20:05)
[2018-07-14] MEDS: QUETIAPINE 200 MG TABLET PO SCH (20:06)
[2018-07-15] MEDS: LORazepam 1MG TABLET PO PRN (05:34)
[2018-07-15 07:44] VITALS: BP 106/63
[2018-07-15] MEDS: SERTRALINE 100MG TABLET PO SCH (08:06)
[2018-07-15] MEDS: GABAPENTIN 400 MG CAPSULE PO SCH ×3 (08:06→20:13)
[2018-07-15] MEDS: QUETIAPINE 100MG TABLET PO SCH ×2 (08:06→12:16)
[2018-07-15] MEDS: PROPRANOLOL 20 MG TABLET PO SCH ×3 (08:06→20:14)
[2018-07-15] MEDS: DIVALPROEX 500 MG TAB.ER.24H PO SCH ×2 (08:07→20:14)
[2018-07-15] MEDS: ZIPRASIDONE 40MG CAPSULE PO SCH ×2 (08:07→20:13)
[2018-07-15] MEDS: LEVOTHYROXINE 75 MCG TABLET PO SCH (08:08)
[2018-07-15 19:11] LABS: CLOSTRIDIUM DIFFICILE ANTIGEN NEGATIVE; CLOSTRIDIUM DIFFICILE TOXIN NEGATIVE (Negative)
[2018-07-15 19:54] VITALS: BP 103/68
[2018-07-15] MEDS: PANTOPROZOLE 40MG TABLET PO SCH (20:13)
[2018-07-15] MEDS: QUETIAPINE 200 MG TABLET PO SCH (20:13)
[2018-07-16 07:19] VITALS: BP 95/51
[2018-07-16] MEDS: GABAPENTIN 400 MG CAPSULE PO SCH (07:46)
[2018-07-16] MEDS: DIVALPROEX 500 MG TAB.ER.24H PO SCH (07:46)
[2018-07-16] MEDS: PROPRANOLOL 20 MG TABLET PO SCH (07:47)
[2018-07-16] MEDS: LEVOTHYROXINE 75 MCG TABLET PO SCH (07:47)
[2018-07-16] MEDS: ZIPRASIDONE 40MG CAPSULE PO SCH (07:47)
[2018-07-16] MEDS: SERTRALINE 100MG TABLET PO SCH (07:48)
[2018-07-16] MEDS: QUETIAPINE 100MG TABLET PO SCH (07:48)
== END 2018-07-16 09:35 | disposition home or self-care (01) ==
LOC: ED 18:28 → EDIP 21:10 → INTOOBSV 21:10 → 2N 23:57
PROVIDERS: ADMIT Internal Medicine; ATTEND Internal Medicine
DX: R45.851 Suicidal ideations (principal); E03.9 Hypothyroidism, unspecified; E11.9 Type 2 diabetes mellitus without complications; F12.10 Cannabis abuse, uncomplicated; F15.10 Other stimulant abuse, uncomplicated; F32.9 Major depressive disorder, single episode, unspecified; F43.10 Post-traumatic stress disorder, unspecified; G40.909 Epilepsy, unspecified, not intractable, without status epilepticus; G62.9 Polyneuropathy, unspecified; J45.909 Unspecified asthma, uncomplicated; S81.839A Puncture wound without foreign body, unspecified lower leg, initial encounter; Z87.891 Personal history of nicotine dependence; Z91.5 Personal history of self-harm
CPT/HCPCS: 36415; 80053; 80164; 80307; 80329; 84443; 85025; 87324; 93005; 99284; G0378; G0480